=== PATIENT | male | born 1985 | race Two or more races ===

== ENCOUNTER 2016-06-24 10:29 | Day surgery (SDC) | payer BC ==
[2016-06-19 15:38] VITALS: BMI 31.5
[~2016-06-24 10:29] MED LIST: LACTATED RINGERS 1,000 ML IV SCH
[2016-06-24 10:40] VITALS: TEMP 98
[2016-06-24] MEDS ORDERED: LACTATED RINGERS 1,000 ML IV ONE (10:40)
[2016-06-24] MEDS ORDERED: LIDOCAINE 1% 20 ML VIAL (10MG/ML) FOR IV START INTRADERMA ONE (10:40)
[2016-06-24] MEDS ORDERED: PROPOFOL 10 MG/ML 20 ML VIAL IV ONE (11:36)
--- NOTE | 2016-06-24 11:52 | P.GSHP ---
History of Present Illness H&P Date: 06/24/16 Chief Complaint: GI bleed This is a 31-year-old male referred from Dr. Thiago Trinh. Patient states that he had severe nausea and emesis several weeks ago. At that time he threw up some blood. The patient states that he has been well since then. He presents today for EGD today for possible gastritis or esophagitis. - Constitutional Constitutional: Reports as per HPI Past Medical History Past Medical History: GI Bleed History of Any Multi-Drug Resistant Organisms: None Reported Additional Past Surgical History / Comment(s): lasik eye surgery Past Anesthesia/Blood Transfusion Reactions: No Reported Reaction Smoking Status: Never smoker Past Alcohol Use History: Occasional Past Drug Use History: None Reported - Past Family History Mother Family Medical History: No Reported History Medications and Allergies Home Medications Medication Instructions Recorded Confirmed Type Multivitamins, Thera [Multivitamin] 1 tab PO DAILY 06/19/16 06/19/16 History Allergies Allergy/AdvReac Type Severity Reaction Status Date / Time No Known Allergies Allergy Verified 06/19/16 15:28 Surgical - Exam Vital Signs Temp Pulse Resp BP Pulse Ox 98.0 F 59 L 18 135/84 98 06/24/16 10:37 06/24/16 10:37 06/24/16 10:37 06/24/16 10:37 06/24/16 10:37 - General well developed, no distress - Eyes PERRL - ENT normal pinna - Neck no masses - Respiratory normal expansion - Cardiovascular Rhythm: regular - Abdomen Abdomen: soft, non tender Assessment and Plan Plan: Upper GI bleed. We'll perform EGD.
--- NOTE | 2016-06-24 11:59 | P.OP ---
Date of Procedure: 06/24/16 Preoperative Diagnosis: Upper GI bleed Postoperative Diagnosis: Mild antral gastritis Procedure(s) Performed: EGD Anesthesia: MAC Surgeon: Montez Edmonds Pathology: other (Antrum, esophagus) Condition: stable Disposition: PACU Description of Procedure: The patient's placed on the endoscopy table in the lateral position. He received IV sedation. The gastric scope some placed oropharynx passed in the esophagus and into the stomach. Scope was then placed through the pylorus. The first and second portion of the duodenum appeared normal. Scope was then brought back the antrum and this appeared mildly inflamed. A biopsies performed. Scope was retroflexed and the remainder of the stomach appeared normal. There is no hiatal hernia. The GE junction was at 47 is. The distal esophagus appeared minimally inflamed and a biopsies performed. The proximal esophagus. Normal. Scope was withdrawn for patient.
[2016-06-24 12:06] VITALS: RESP 16
[2016-06-24 12:17] VITALS: BP 130/90; PULSE 70
== END 2016-06-24 12:40 | disposition home or self-care (01) ==
LOC: ORWHC2ENDO 10:29
PROVIDERS: ATTEND Surgery
DX: K29.50 Unspecified chronic gastritis without bleeding (principal); R11.2 Nausea with vomiting, unspecified
CPT/HCPCS: 88305; 88342; 43239; J2704; 99153

== ENCOUNTER → 2017-07-01 | Outpatient (CLI) | payer BC, OTHER ==
--- NOTE | 2017-07-01 19:23 | MR ---
EXAMINATION TYPE: MR knee LT wo con DATE OF EXAM: 07/01/2017 COMPARISON: Outside radiographs 06/17/2017 HISTORY: 32-year-old male Pain in left knee TECHNIQUE: Multiplanar, multisequence imaging of the left knee is performed without IV contrast. FINDINGS: ACL, PCL, MCL, and LCL complex are intact. There is an oblique tear involving the posterior horn of the medial meniscus contacting the femoral a rticular surface. The lateral meniscus intact. Tricompartmental articular cartilage volumes are maintained. Extensor mechanism is intact. There is mild edema along the pes anserinus, axial image 4 and coronal PD FS image 21. No significant knee joint effusion. However, there is a tiny leaking Barnett's cyst noted. Normal popliteal artery anatomy and muscle bulk. No suspicious bone marrow replacement. IMPRESSION: 1. Oblique tear of the posterior horn of the medial meniscus. 2. Mild pes anserinus bursitis and a tiny leaking Barnett's cyst.
== END | disposition home or self-care (01) ==
LOC: RADMRIMAIN 16:32
PROVIDERS: ATTEND Orthopaedic Surgery
DX: S83.242A Other tear of medial meniscus, current injury, left knee, initial encounter (principal); M71.562 Other bursitis, not elsewhere classified, left knee

== ENCOUNTER → 2017-07-24 | Outpatient (CLI) | payer BC ==
[2017-07-24 16:48] LABS: Basophils % (A) 0 %; Eosinophils # (A) 0.2 k/uL (0-0.7); Eosinophils % (A) 3 %; HCT 45.8 % (39.0-53.0); HGB 15.5 gm/dL (13.0-17.5); Lymphocytes # (A) 1.9 k/uL (1.0-4.8); Lymphocytes % (A) 31 %; MCH 28.2 pg (25.0-35.0); MCHC 33.9 g/dL (31.0-37.0); MCV 83.2 fL (80.0-100.0); Mean Platelet Volume 9.3; Monocytes # (A) 0.6 k/uL (0-1.0); Monocytes % (A) 10 %; Neutrophils # (A) 3.3 k/uL (1.3-7.7); Neutrophils % (A) 54 %; Platelet Count 212 k/uL (150-450); RBC 5.51 m/uL (4.30-5.90); WBC 6.1 k/uL (3.8-10.6)
[2017-07-24 16:51] LABS: Potassium 4.4 mmol/L (3.5-5.1)
== END ==
LOC: LABWHC1 16:01
PROVIDERS: ATTEND Orthopaedic Surgery
DX: Z01.812 Encounter for preprocedural laboratory examination (principal); M23.92 Unspecified internal derangement of left knee
CPT/HCPCS: 36415; 80051; 85025

== ENCOUNTER 2019-05-08 23:11 | Emergency (ER) | payer BC ==
[2019-05-08] MEDS ORDERED: ACETAMINOPHEN TAB 500 MG TAB PO STA (23:41)
[2019-05-08] MEDS ORDERED: IBUPROFEN 600 MG TAB PO STA (23:41)
--- NOTE | 2019-05-08 23:47 | ED ---
General Adult HPI - General Chief complaint: Upper Respiratory Infection Stated complaint: + Flu A and B Time Seen by Provider: 05/08/19 23:37 Source: patient Mode of arrival: ambulatory Limitations: no limitations - History of Present Illness Initial comments: Patient presents the ED complaining of a cough and congestion for the past couple of weeks. Patient also states that he has developed a fever and chills today. Patient states that he was diagnosed with influenza A and B in [place] about 2 weeks ago, and he states he was treated with a course of Tamiflu, as well as a course of azithromycin, at that time. Patient states that his symptoms had improved, but he is now feeling worse. Patient denies taking any medication today. Patient denies having any pain, headache, neck pain or stiffness, sore throat, otalgia, chest pain, dyspnea, hemoptysis, dizziness, abdominal pain, nausea or vomiting, diarrhea, dysuria or urinary symptoms, or any other symptoms or complaints. - Related Data Home Medications Medication Instructions Recorded Confirmed Multivitamins, Thera [Multivitamin] 1 tab PO DAILY 06/19/16 07/31/17 Previous Rx's Medication Instructions Recorded Hydrocodone/Acetaminophen [[place] 1 each PO Q6HR PRN #20 tab 08/07/17 5-325] Allergies Allergy/AdvReac Type Severity Reaction Status Date / Time No Known Allergies Allergy Verified 07/31/17 14:57 Review of Systems ROS Statement: Those systems with pertinent positive or pertinent negative responses have been documented in the HPI. ROS Other: All systems not noted in ROS Statement are negative. Past Medical History Past Medical History: GI Bleed History of Any Multi-Drug Resistant Organisms: None Reported Additional Past Surgical History / Comment(s): lasik eye surgery Past Anesthesia/Blood Transfusion Reactions: No Reported Reaction Smoking Status: Never smoker - Past Family History Mother Family Medical History: No Reported History General Exam Limitations: no limitations General appearance: alert, in no apparent distress Head exam: Present: atraumatic, normocephalic Eye exam: Present: normal appearance, EOMI ENT exam: Present: normal oropharynx, mucous membranes moist Neck exam: Present: other (Trachea is in midline). Absent: tenderness, meningismus Respiratory exam: Present: normal lung sounds bilaterally. Absent: respiratory distress, wheezes, rales, rhonchi Cardiovascular Exam: Present: normal rhythm, tachycardia, normal heart sounds, other (Normal radial pulses bilaterally) GI/Abdominal exam: Present: soft. Absent: distended, tenderness Extremities exam: Absent: tenderness, pedal edema, calf tenderness Neurological exam: Present: alert, oriented X3. Absent: motor sensory deficit Psychiatric exam: Present: normal affect, normal mood Skin exam: Present: warm, dry, intact, normal color Course Vital Signs 05/08/19 05/08/19 23:18 23:39 Temperature 101.8 F H Pulse Rate 109 H Respiratory 18 20 Rate Blood Pressure 133/88 O2 Sat by Pulse 97 Oximetry - Reevaluation(s) Reevaluation #1: 05/09/19 00:51 Patient remains alert and breathing comfortably with a normal room air oxygen saturation. Patient denies development of any new symptoms while in the ED. Patient is aware of his test results, and he feels comfortable going home at this time. He was counseled about upper respiratory infections and fever control, and he was clearly explained return and follow-up instructions. He feels comfortable with this plan. Medical Decision Making - Medical Decision Making Patient reports having a cough and congestion, and patient is noted to have a fever in the ED. Patient's chest x-ray is negative and his influenza/RSV studies are negative. I suspect that the patient's symptoms are likely secondary to a viral upper respiratory infection. - Lab Data Lab Results 05/08/19 Range/Units 23:55 Influenza Type A RNA Not Detected (Not Detectd) Influenza Type B (PCR) Not Detected (Not Detectd) RSV (PCR) Negative (Negative) - Radiology Data Radiology results: image reviewed (Chest x-ray is negative) Disposition Clinical Impression: Upper respiratory tract infection Disposition: HOME SELF-CARE Condition: Stable Instructions (If sedation given, give patient instructions): Fever in Adults (ED), Upper Respiratory Infection (ED) Additional Instructions: Return to the ER immediately should you develop trouble breathing, any significant pain, vomiting, feeling dizzy or faint, or new or worsening symptoms. Follow up closely with your primary care provider. Is patient prescribed a controlled substance at d/c from ED?: No Referrals: Thiago Mckenzie DO [Primary Care Provider] - 1-2 days Time of Disposition: 00:55
--- NOTE | 2019-05-08 23:54 | XR ---
EXAMINATION TYPE: XR chest 2V DATE OF EXAM: 05/08/2019 COMPARISON: NONE HISTORY: Fever TECHNIQUE: FINDINGS: Heart and mediastinum are normal. There is small linear density right lower lobe. There are no hilar masses. There is no pleural effusion. Bony thorax is intact. IMPRESSION: No active cardiopulmonary disease. Normal heart.
[2019-05-09 01:01] VITALS: BP 136/78; PULSE 100; RESP 18; TEMP 100.2
== END 2019-05-09 01:00 | disposition home or self-care (01) ==
LOC: EC 23:11
DX: J06.9 Acute upper respiratory infection, unspecified (principal)
CPT/HCPCS: 71046; 87502; 87634; 99283